=== PATIENT | female | born 1955 | race Caucasian/White ===

== ENCOUNTER → 2017-01-02 | Day surgery (SDC) | payer BC ==
[~2017-01-02] MED LIST: BUPIVACAINE HCL PF 0.5% 10 ML VIAL ONE; KETOROLAC TROMETHAMINE 30 MG/ML (IVP) VIAL IV PUSH ONE; MIDAZOLAM HCL 2 MG/2 ML VIAL ONE; ONDANSETRON HCL 4 MG/2 ML VIAL IV PUSH ONE; PROPOFOL 200 MG/20 ML AMP IV ONE; ceFAZolin INJ 1,000 MG VIAL ONE
--- NOTE | 2017-01-02 22:10 | PD.OP ---
cc: Kenroy Gray Jr., MD Operative Report Date of Surgery: Jan 02, 2017 Preoperative Diagnosis: right long trigger finger Postoperative Diagnosis: same Procedure: Right long trigger finger A1 david release Surgeon: Kenroy Gray Demolition Specialist(s): none Resident Surgeon: none Operation and Findings: Patient was seen and evaluated preoperatively and found to have a debilitating and painful trigger finger at the RIGHT long finger, that has so far failed nonoperative treatment. Informed consent was obtained after detailed discussion of risk and benefits including bleeding, infection, injury to arteries, nerves, and blood vessels, weakness and numbness of hand, and tendon rupture. Informed consent was obtained. Patient received IV antibiotics prior to incision. Timeout procedure was performed. Operative extremity was prepped with alcohol followed by Hibiclens and draped usual sterile fashion. A 1 cm long vertical incision was made with the proximal palmar crease and carried by sharp dissection through the subcutaneous tissue. Blunt dissection was used to expose the flexor tendon and the proximal edge of the A1 david. There was significant fibrosis and hypertrophy at the A1 david. Using a #11 knife blade, the A1 david was incised from proximal to distal. The finger was then put through a full range of motion with no triggering and I could see the hyperthrophic bump on the flexor tendon appear and disappear, and there was no triggering. The wound was irrigated copiously with normal saline and the incision closed with 4 interrupted simple sutures of 2-0 nylon. A sterile pressure dressing was placed over the hand, and the tourniquet was deflated. The patient was awakened and returned to recovery in apparently good condition. POSTP-OP PLAN OF ACTIVITY Antibiotics: none Antiocoagulation: none Weight bearing status: WBAT Dressing: Do not remove until outpatient clinic visit Dispo: expected discharge TODAY home from PACU Kenroy Gray Jr., MD Jan 02, 2017 22:10
== END | disposition home or self-care (01) ==
LOC: ESDC 12:56
PROVIDERS: ATTEND Orthopaedic Surgery
DX: M65.331 Trigger finger, right middle finger (principal)
CPT/HCPCS: 01810; 26055; J0690; J1885; J2250; J2405; J3010